=== PATIENT | female | born 1980 | race Caucasian/White ===

== ENCOUNTER 2016-11-20 18:43 | Emergency (ER) ==
[2016-11-20] MEDS ORDERED: ASPIRIN PO STA (18:52)
[2016-11-20 19:04] LABS: MANUAL DIFF NEEDED? NO
[2016-11-20 19:07] LABS: BASO% 0.3 % (0.0-0.8); EOS% 1.3 % (0.0-10.0); HEMATOCRIT 42.9 % (37.0-47.0); HEMOGLOBIN 14.6 g/dL (12.0-16.0); IMM GRAN# 0.02 X1000 (0.0-0.04); IMM GRAN% 0.3 % (0.0-0.5); LYMPH# 3.49 X1000 (1.2-3.4); LYMPH% 45.4 % (20.5-51.1); MCH 30.2 PG (27-31); MCV 88.8 FL (81-99); MONO# 0.54 X1000 (0.11-0.59); MPV 9.5 FL (7.4-10.4); NEUT% 45.7 % (42.2-75.2); PLT 259 X1000 (130-400); RBC 4.83 XMIL (4.2-5.4)
--- NOTE | 2016-11-20 19:27 | PROVIDER DOCUMENTATION ---
HPI-Chest Pain - General Source: patient - History of Present Illness-CP Location: reports: substernal Quality of Pain: reports: aching Severity in ED: mild Onset/Duration: 2 days ago Timing: still present Context/Activities at Onset: reports: none Modifying Factors: improves with: nothing Associated Symptoms: reports: denies symptoms Aspirin Treatment Today: 325 mg x 1, provided by ED Similar Symptoms Previously?: No Recently Seen Here or By Another Healthcare Provider: No <Shelby Montelongo - Last Filed: 11/20/16 19:35> <Yan Mo - Last Filed: 11/20/16 20:31> - General Chief Complaint: Chest Pain Stated Complaint: CP Time Seen by Provider: 11/20/16 19:09 Allergies/Adverse Reactions: Patient Allergies Allergy/AdvReac Type Severity Reaction Status Date / Time Penicillins Allergy Severe ANAPHYLAXIS Verified 11/05/12 20:55 dextromethorphan HBr * Allergy Mild HIVES Verified 11/05/12 20:55 [From Comtrex Cold-Cough] phenylephrine HCl * Allergy Mild HIVES Verified 11/05/12 20:55 [From Comtrex Cold-Cough] latex Allergy RASH Verified 02/14/16 23:24 Home Medications: Home Medication List Medication Instructions Recorded Confirmed Last Taken Type Prenat Vit Comb.10/Iron/FA/Dha 1 each PO DAILY 11/05/12 02/14/16 02/14/16 08:00 History [Vitanatal Ob + Dha Combo Pack] Cyclobenzaprine [Flexeril] 10 mg PO TID #20 tablet 11/20/16 Unknown Rx Ibuprofen [Motrin] 800 mg PO Q8H PRN PRN #20 tablet 11/20/16 Unknown Rx Omeprazole [Prilosec] 20 mg PO DAILY@0700 #20 capsule 11/20/16 Unknown Rx - History of Present Illness-CP Nature of Presenting Problem: 36 year old F presents to the ED with a cc of chest pain, neck pain, jaw pain, and left arm pain. PT states that she ran 8.5 miles on Saturday. PT states that she has had a crick in her neck from sleeping wrong. PT states that her PCP has told her that she has possible tennis elbow from holding her 9 month old. Pt states that she had previous jaw surgery and has had a migraine over the past few days. (Shelby Montelongo) Review of Systems - Adult - REVIEW OF SYSTEMS - ADULT Constitutional: denies: chills, fever Eyes: reports: no symptoms reported Ears, Nose, Mouth & Throat: reports: no symptoms reported Cardiovascular: reports: chest pain. denies: palpitations Respiratory: denies: cough, shortness of breath Gastrointestinal: denies: nausea, vomiting Genitourinary: reports: no symptoms reported Musculoskeletal: denies: back pain, muscle weakness Integumentary: reports: no symptoms reported Neurological: reports: no symptoms reported Psychiatric: reports: no symptoms reported Endocrine: reports: no symptoms reported Hematologic/Lymphatic: reports: no symptoms reported Allergic/Immunologic: reports: no symptoms reported All Other Systems: Reviewed and Negative <Shelby Montelongo - Last Filed: 11/20/16 19:35> Past History - Adult - PAST MEDICAL HISTORY-ADULT Review of Records: reports: Nursing Assessment Review, Medications Reviewed Major Childhood Illnesses: reports: denies history Other Conditions: reports: denies history - PRIOR SURGERIES/PROCEDURES Surgical/Procedure History: reports: other (jaw) - IMMUNIZATION STATUS Childhood Immunizations: See Nurse Assessment Flu Vaccine: See Nurse Assessment - SOCIAL HISTORY Smoking: non-smoker Substance Use: none/never Alcohol Use Frequency: never <Shelby Montelongo - Last Filed: 11/20/16 19:35> Physical Exam-General - PHYSICAL EXAM-ADULT Initial Vital Signs Reviewed: Yes - CONSTITUTIONAL General Appearance: appears well, alert, no apparent distress - NECK Neck: tender lateral (left) - RESPIRATORY Respiratory: chest non-tender, lungs clear, normal breath sounds - CARDIOVASCULAR Cardiovascular: normal peripheral pulses, regular rate, rhythm, no edema - GASTROINTESTINAL (ABDOMEN) Abdominal Exam: normal bowel sounds, non tender, soft - MUSCULOSKELETAL Extremity: normal inspection, no pedal edema - SKIN Integumentary: normal color, normal turgor, warm/dry - PSYCHIATRIC Psych/Mental Status: normal mood/affect, normal thought content, normal thought process, oriented x 3 <Shelby Montelongo - Last Filed: 11/20/16 19:35> Progress - EKG 1 Time of EKG reading by physician:: 18:47 EKG Read and Signed by:: Harry Decker EKG Interpretation (*Must complete 3 of following elements*): Normal Rate: 90 Rhythm: NSR [place]: normal <Shelby Montelongo - Last Filed: 11/20/16 19:35> - REASSESSMENT Reassessment #1 Time Reassessed: 20:31 (Dr. Decker (ER MD) at bedside. Reviewd labs and imaging studies c pt. Pt expressed understanding and agreed to follow up with her primary care physician. She will also receive a referral to cardiology.) <Yna Mo Apurva - Last Filed: 11/20/16 20:31> - PLAN OF CARE/RESULTS Progress/Plan/Lab Results: Orders Category Date Time Status CHEST-2 VIEWS [RAD] Stat Exams 11/20/16 18:53 Taken CBC WITH ELECTRONIC DIFF [HEME] Stat Lab 11/20/16 18:51 Completed CK PROFILE [SP CHEM] Stat Lab 11/20/16 18:51 Completed COMPREHENSIVE METABOLIC PANEL [CHEM] Stat Lab 11/20/16 18:51 Completed MAGNESIUM [CHEM] Stat Lab 11/20/16 18:51 Completed PRO B-NATRIURETIC PEPTIDE Stat Lab 11/20/16 18:51 Completed PROTIME WITH INR [COAG] Stat Lab 11/20/16 18:51 Completed PTT [COAG] Stat Lab 11/20/16 18:51 Completed TROPONIN T Stat Lab 11/20/16 18:51 Completed Aspirin Med 11/20/16 18:52 Discontinued 325 mg PO STAT STA Cyclobenzaprine [Flexeril] Med 11/20/16 20:16 Discontinued 10 mg PO NOW ONE EKG [EKG] Stat Ther 11/20/16 18:53 Ordered Laboratory Tests 11/20/16 11/20/16 11/20/16 18:51 18:51 18:51 WBC 7.69 RBC 4.83 Hgb 14.6 Hct 42.9 MCV 88.8 MCH 30.2 MCHC 34.0 RDW Std Deviation 12.8 Plt Count 259 MPV 9.5 Immature Gran % (Auto) 0.3 Neut % (Auto) 45.7 Lymph % (Auto) 45.4 [place] % (Auto) 7.0 Eos % (Auto) 1.3 Baso % (Auto) 0.3 Immature Gran # (Auto) 0.02 Neut # (Auto) 3.52 Lymph # (Auto) 3.49 H [place] # (Auto) 0.54 Eos # (Auto) 0.10 Baso # (Auto) 0.02 PT INR PTT (Actin FS) Sodium 141 Potassium 3.4 L Chloride 102 Carbon Dioxide 24 L Anion Gap 15 BUN 17 Creatinine 0.7 Estimated GFR/1.73 m2 > 60 BUN/Creatinine Ratio 24 Glucose 132 H Calculated Osmolality 285 Calcium 9.0 Magnesium 1.9 Total Bilirubin 0.19 L AST 17 ALT 12 Alkaline Phosphatase 80 Creatine Kinase 120 Troponin T [id number] Pept 24 Total Protein 7.2 Albumin 4.7 Globulin 2.5 Albumin/Globulin Ratio 1.9 11/20/16 11/20/16 18:51 18:51 WBC RBC Hgb Hct MCV MCH MCHC RDW Std Deviation Plt Count MPV Immature Gran % (Auto) Neut % (Auto) Lymph % (Auto) [place] % (Auto) Eos % (Auto) Baso % (Auto) Immature Gran # (Auto) Neut # (Auto) Lymph # (Auto) [place] # (Auto) Eos # (Auto) Baso # (Auto) PT 10.5 INR 1.00 PTT (Actin FS) 25.3 Sodium Potassium Chloride Carbon Dioxide Anion Gap BUN Creatinine Estimated GFR/1.73 m2 BUN/Creatinine Ratio Glucose Calculated Osmolality Calcium Magnesium Total Bilirubin AST ALT Alkaline Phosphatase Creatine Kinase Troponin T < 0.010 Gno-[id number] Pept Total Protein Albumin Globulin Albumin/Globulin Ratio Vital Signs - 24 hr 11/20/16 18:49 Temperature 98.4 F Pulse Rate 94 H Respiratory 20 Rate Blood Pressure 142/76 O2 Sat by Pulse 100 Oximetry (Yan Mo) Departure <Shelby Montelongo - Last Filed: 11/20/16 19:35> - Departure Time of Disposition Order: 20:29 Certified Medical Emergency: Emergent <Yan Mo - Last Filed: 11/20/16 20:31> - Departure DIAGNOSIS: Neck pain Shoulder pain, left Qualifiers: Chronicity: acute Qualified Code(s): M25.512 - Pain in left shoulder Disposition: HOME 01 Condition: Stable Additional Instructions: ED Follow Up Instructions: You have been treated by a care provider in the Emergency Department. These instructions are being provided to you so you can have an understanding of how to care for yourself upon discharge. Upon discharge from the Emergency Department, you are responsible for making arrangements for follow-up care by a physician of your choice. Take all prescribed medications as directed. Return to the Emergency Department immediately for any new or worsening symptoms. You may call the Physician Referral phone number at [phone] to obtain a list of Physicians who are taking new patients. Prescriptions: Cyclobenzaprine [Flexeril] 10 mg PO TID #20 tablet Ibuprofen [Motrin] 800 mg PO Q8H PRN PRN #20 tablet PRN Reason: inflammation Omeprazole [Prilosec] 20 mg PO DAILY@0700 #20 capsule Referrals: Cristina Holloway MD [Primary Care Provider] - Call for Appoint. 1-2days Pedro Jenkins MD [STAFF PHYSICIAN] - Call for Appoint. -1 week Attestation - Scribe Verification/Attestation Scribe:: Shelby Montelongo Acting as Scribe for:: Yan Mo Scribe documention review:: This chart was documented by a scribe and accurately reflects the service the provider performed and the decisions made by the provider. <Shelby Montelongo - Last Filed: 11/20/16 19:35> - Physician/ JOSE ANGEL Attestation Patient care was provided by Advanced Practice Provider:: Yes Advanced Practice Provider:: Yan Mo Advanced Practice Provider documentation review:: The Mid-level provider documentation, treatment plan and medical decision making was reviewed by the physician who agrees with all treatment and medical decision making by the MLP. The physician spent face to face time with patient:: Yes Advanced Practice Provider documentation review:: The physician spent face to face time with this patient and agrees with all MLP documentation, treatment, and medical decision making by the MLP. See provider notes for further information. <Yan Mo - Last Filed: 11/20/16 20:31> Physician Attestation - Physician Attestation I, the provider, attest to the following statement:: Yan Mo Physician documentation Attestation:: This documentation recorded by the scribe accurately reflects the service I personally performed and the decisions made by me. <Yan Mo - Last Filed: 11/20/16 20:31>
[2016-11-20 19:30] LABS: AGAP 15; ALBUMIN 4.7 g/dL (3.5-5.0); ALKALINE PHOSPHATASE 80 U/L (32-104); BUN 17 mg/dL (8-22); CHLORIDE 102 mmol/L (98-107); CK PROFILE 120 U/L (24-173); COSMO 285; GOT 17 U/L (10-30); GPT 12 U/L (10-36); MAGNESIUM 1.9 mg/dL (1.5-2.7); POTASSIUM 3.4 mmol/L (3.5-5.1); PROTIME 10.5 Seconds (9.2-11.7); PTT 25.3 Seconds (22.0-36.0); SODIUM 141 mmol/L (136-145); TCO2 24 mmol/L (25-35); TOTAL BILIRUBIN 0.19 mg/dL (0.20-1.00); TOTAL PROTEIN 7.2 g/dL (6.3-8.3)
[2016-11-20] MEDS ORDERED: FLEXERIL PO ONE (20:16)
[2016-11-20 20:59] VITALS: BP 125/75
--- NOTE | 2016-11-21 05:31 | EKG Report ---
Test Performed on : 11/20/2016 6:47:34 PM Test Reason : Chest Pain Blood Pressure : / mmHG Vent. Rate : 090 BPM Atrial Rate : 090 BPM P-R Int : 124 ms QRS Dur : 082 ms QT Int : 352 ms P-R-T Axes : 017 072 048 degrees QTc Int : 430 ms Normal sinus rhythm. Normal ECG When compared with ECG of 19-JAN-2013 17:19, No significant change was found Unconfirmed Result
--- NOTE | 2016-11-21 08:14 | Diag Imaging Result Document ---
PROCEDURE NAME: CHEST-2 VIEWS - 11/20/2016 CHEST X-RAY, 2 VIEWS: COMPARISON: None. FINDINGS: The lungs are normally expanded and clear. Heart size and mediastinal contours are normal. No pneumothorax or pleural effusion. IMPRESSION: Negative exam.
== END 2016-11-20 20:58 | disposition home or self-care (01) ==
LOC: ED 18:43
DX: M54.2 Cervicalgia (principal); M25.512 Pain in left shoulder; R07.89 Other chest pain; R68.84 Jaw pain; M79.602 Pain in left arm; R51 Headache
CPT/HCPCS: 71020; 80053; 82550; 83735; 83880; 84484; 85025; 85610; 85730; 93005